=== PATIENT | female | born 1965 | race Caucasian/White ===

== ENCOUNTER 2016-10-25 07:03 | Day surgery (SDC) | payer BC ==
[~2016-10-25] VITALS: Ht 165.1 cm; Wt 112.0 kg
[2016-10-25] VITALS (15 sets, daily range): BP systolic 124–149; BP diastolic 65–85; PULSE 56–68; RESP 14–18; Ht 165.1 cm; Wt 112.0 kg
[~2016-10-25 07:03] MED LIST: NO MEDS
[2016-10-25] MEDS ORDERED: LACTATED RINGER'S 1,000 ML IV SCH (08:00)
[2016-10-25 09:42] LABS: ADD SCAN DIFF NO
[2016-10-25 09:43] LABS: BASOPHILS % 0.6 % (0.0-2.0); EOSINOPHILS # 0.3 10^3/ul (0.0-0.5); EOSINOPHILS % 4.5 % (0.0-7.0); HEMATOCRIT 38.8 % (37.0-47.0); HEMOGLOBIN 13.1 g/dl (12.0-16.0); LYMPHOCYTES # 2.4 10^3/ul (0.8-2.9); LYMPHOCYTES % 33.6 % (15.0-51.0); MEAN CORPUSCULAR HEMOGLOBIN 31.3 pg (29.0-33.0); MEAN CORPUSCULAR HGB CONC 33.8 g/dl (32.0-37.0); MEAN CORPUSCULAR VOLUME 92.8 fl (82.0-101.0); MONOCYTE # 0.6 10^3/ul (0.3-0.9); MONOCYTES % 8.2 % (0.0-11.0); NEUTROPHIL # 3.8 10^3/ul (1.6-7.5); NEUTROPHILS % 52.7 % (39.0-77.0); PLATELET COUNT 220 10^3/UL (140-415); RED BLOOD COUNT 4.18 10^6/ul (4.20-5.40); RED CELL DISTRIBUTION WIDTH 12.7 % (11.5-14.5); WHITE BLOOD COUNT 7.2 10^3/ul (4.8-10.8)
[2016-10-25] MEDS ORDERED: MEPERIDINE 100 MG INJ ONE (09:49)
[2016-10-25] MEDS ORDERED: PROPOFOL 20 ML ONE (09:49)
[2016-10-25] MEDS ORDERED: LIDOCAINE 2% (SDV) 5 ML INJ ONE (09:49)
[2016-10-25] MEDS ORDERED: LIDOCAINE 1%/EPI 30 ML INJ ONE (10:25)
[2016-10-25] MEDS ORDERED: FERRIC SUBSULFATE 8 GM VIAL TOP SCH (10:30)
[2016-10-25] MEDS ORDERED: ONDANSETRON 4 MG INJ ONE (11:15)
[2016-10-25] MEDS ORDERED: DEXAMETHASONE 4 MG/ML 1 ML INJ ONE (11:15)
--- NOTE | 2016-10-25 11:28 | PREOPHP ---
DATE OF ADMISSION: 10/25/2016 HISTORY OF PRESENT ILLNESS: A 51-year-old female 3, para 3, last menstrual period 7, is admitted due to history of cervical dysplasia. PAST MEDICAL HISTORY: Unremarkable. PAST SURGICAL HISTORY: Shoulder surgery and cholecystectomy. ALLERGIES: 1. CODEINE. 2. ASPIRIN. 3. REGLAN. FAMILY HISTORY: Pancreatic cancer, uterine cancer and diabetes. PHYSICAL EXAMINATION: VITAL SIGNS: Patient is afebrile. Vital signs stable. HEAD, NECK AND CHEST: Within normal limits. ABDOMEN: Soft, nontender, nondistended. PELVIC: Normal. EXTREMITIES: Within normal limits. NEUROLOGIC: Within normal limits. IMPRESSION: Moderate cervical dysplasia. PLAN: Loop electrosurgical excision procedure. Risks, benefits and alternatives of the procedure w ere explained to the patient. The patient said she understood and gave informed consent for the pro cedures. Dictated By: SHADY MCLEAN/BENNETT Conf#: [id number] DID#: [id number]
[2016-10-25] MEDS ORDERED: MEPERIDINE 25 MG INJ IV PRN (11:30)
[2016-10-25] MEDS ORDERED: DIPHENHYDRAMINE 50 MG INJ IV PRN (11:30)
[2016-10-25] MEDS ORDERED: ONDANSETRON 4 MG INJ IV PRN (11:30)
[2016-10-25] MEDS ORDERED: EPHEDrine SULFATE 50 MG/5 ML SYG IV PRN (11:30)
[2016-10-25] MEDS ORDERED: FENTAnyl 50 MCG/ML VIAL IV PRN ×2 (11:30)
[2016-10-25] MEDS ORDERED: hydrALAzine 20 MG INJ IV PRN (11:30)
[2016-10-25] MEDS ORDERED: LABETALOL HCL 20MG INJ IV PRN (11:30)
[2016-10-25] MEDS ORDERED: MIDAZOLAM 1 MG/ML 2 ML INJ IV PRN (11:30)
--- NOTE | 2016-10-25 11:47 | OPR ---
DATE OF OPERATION: 10/25/2016 PREOPERATIVE DIAGNOSIS: Mild cervical dysplasia. POSTOPERATIVE DIAGNOSIS: Mild cervical dysplasia. OPERATION PERFORMED: Loop electrosurgical excision procedure and endocervical curettage. SURGEON: Shady Harper MD ANESTHESIA: General. ANESTHESIOLOGIST: Tejinder Bolaños MD PROCEDURE: The patient was taken to the operating room and placed on the operating table in supine position. After adequate general anesthesia was given, the patient was placed in dorsal lithotomy p osition. The area was prepared and draped in the usual sterile fashion. Speculum was placed inside the vagina. Using a 1% solution of Xylocaine with epinephrine, the cervix was injected. Using a s emicircular loop, a portion of upper cervix and lower cervix were excised and sent to pathology. Us ing a square loop, a portion of endocervix was excised and sent to pathology. Using Kevorkian curet te, endocervical curettage was performed and specimen obtained was sent to pathology. Using ball-ti p Bovie, small bleeders were cauterized. Surgicel soaked in Monsel solution was applied to the site . All the instruments were removed. Adequate hemostasis was assured. The patient tolerated the pr ocedure well. The patient was awakened from anesthesia and transferred to recovery in stable condit ion. All counts were correct. Dictated By: SHADY MCLEAN/BENNETT Conf#: [id number] DID#: [id number]
--- NOTE | 2016-10-28 15:21 | RADRPT ---
Vent Rate: 58 bpm RR Interval: 0 msec IN Interval: 122 msec QRS Duration: 94 msec QT Interval: 488 msec QTC Interval: 479 msec P-R-T [place]: 30 - 55 - 19 degrees Sinus bradycardia T inverted in III Electronically Signed By: Vladimir Gerardo [id number]
== END 2016-10-25 13:25 | disposition home or self-care (01) ==
LOC: SDS 07:03
PROVIDERS: ATTEND Obstetrics & Gynecology
DX: N72 Inflammatory disease of cervix uteri (principal); E66.01 Morbid (severe) obesity due to excess calories; Z68.41 Body mass index [BMI] 40.0-44.9, adult
CPT/HCPCS: 57522; 84703; 85025; 86850; 86900; 86901; 88305; 93005; J1100; J2175; J2405; Z7512; Z7610